=== PATIENT | male | born 1940 | race Caucasian/White ===

== ENCOUNTER 2017-02-17 05:29 | Emergency (ER) | payer OTHER, BC ==
[~2017-02-17] VITALS: Ht 167.6 cm; Wt 68.0 kg
--- NOTE | ~2017-02-17 | EKG ---
[address] [place] [address] ELECTROCARDIOGRAM REPORT Name: JUAN EVERETT Room [facility]: [id number] Admission: 02/17/17 Attend Phys: Discharge: 02/17/17 Date of : 36 Report #: [id number] THIS REPORT FOR: //name// [facility] ED Test Date: 2017-02-17 Test Time: 05:51:56 Pat Name: JUAN EVERETT Department: Room: Gender: M Supervisor [place]: CWEISCORKY : 1940 Requested By: Lucie Padilla Order Number: [id number] MD: Domenico Maguire Measurements Intervals [place] Rate: 62 P: 25 ND: 173 QRS: -32 QRSD: 87 T: 33 QT: 402 QTc: 409 Interpretive Statements Sinus rhythm Sinus arrhythmia Inferior infarct, old No previous ECG available for comparison Electronically Signed On 02-17-2017 8:38:38 CDT by Domenico Maguire [email or web address] <ELECTRONICALLY SIGNED> By: Domenico Maguire MD, [facility] 02/17/17 [id number] Domenico Maguire MD, FACC /EPI
[2017-02-17] MEDS ORDERED: METFORMIN HCL500 MG PO (05:49)
[2017-02-17 05:51] LABS: ABSOLUTE NEUTROPHILS 4.6 thou/uL (1.4-8.2); BASOPHILS 0.6 % (0.0-2.0); EOSINOPHILS 4.8 % (0.0-3.0); HEMATOCRIT 36.8 % (42.0-52.0); HEMOGLOBIN 12.6 gm/dL (14.0-18.0); LYMPHOCYTES 25.5 % (24.0-44.0); MCH 27.8 pg (26.0-34.0); MCHC 34.3 g/dL (28.0-37.0); MCV 81.1 fL (80.0-100.0); MONOCYTES 8.8 % (1.0-8.0); PLATELET COUNT 244 thou/uL (150-400); POLYS 60.3 % (36.0-66.0); RBC 4.54 mil/uL (4.50-6.00); WBC 7.6 thou/uL (4.0-11.0)
[2017-02-17 05:54] LABS: MANUAL DIFF NO
[2017-02-17 06:03] LABS: ANION GAP 9 mmol/L (7-16); BUN 11 mg/dL (7-18); CALCIUM 9.1 mg/dL (8.5-10.1); CHLORIDE 98 mmol/L (98-107); CO2 26 mmol/L (21-32); GLUCOSE 110 mg/dL (74-106); POTASSIUM 3.8 mmol/L (3.5-5.1); SODIUM 133 mmol/L (136-145)
[2017-02-17 06:06] LABS: APTT 28.7 Seconds (24.5-32.8); INR 1.1; PROTIME 11.6 Seconds (9.3-11.4)
[2017-02-17 06:16] LABS: ALKALINE PHOSPHATASE 67 U/L (46-116); MAGNESIUM 1.8 mg/dL (1.8-2.4); NT-PRO BRAIN NAT PEPTIDE 75 pg/mL (<300); SGOT 18 U/L (15-37); SGPT 19 U/L (30-65); TOTAL BILIRUBIN 0.5 mg/dL (<0.1-1.0); TOTAL PROTEIN 7.2 g/dL (6.4-8.2); TROPONIN-I < 0.04 ng/mL (<0.04-0.07)
[2017-02-17] MEDS ORDERED: NEURONTIN 300300 M1 PO (06:47)
[2017-02-17 07:10] VITALS: BP 112/76
== END 2017-02-17 07:22 | disposition home or self-care (01) ==
LOC: ER 05:29
PROVIDERS: Emergency Medicine
DX: G62.9 Polyneuropathy, unspecified (principal); I10 Essential (primary) hypertension; E11.9 Type 2 diabetes mellitus without complications; E78.5 Hyperlipidemia, unspecified; Z98.890 Other specified postprocedural states